=== PATIENT | male | born 1990 | race Caucasian/White ===

== ENCOUNTER 2017-10-19 15:10 | Emergency (ER) | payer OTHER ==
[~2017-10-19] VITALS: Ht 180.3 cm; Wt 93.2 kg
[~2017-10-19 15:10] MED LIST: ADVIL; NOHOMEMEDS; PERCOCET 5/31 TABLET PO
[2017-10-19] MEDS ORDERED: NORCO 7.5/321 TABLET PO (18:05)
[2017-10-19] MEDS ORDERED: MOTRIN800 MG PO (18:05)
[2017-10-19] MEDS ORDERED: LIDODERM 5% P1 PATCH TD (18:05)
[2017-10-19 18:26] VITALS: BP 124/80
== END 2017-10-19 18:27 | disposition home or self-care (01) ==
LOC: EME 15:10
DX: S20.212A Contusion of left front wall of thorax, initial encounter (principal); W00.0XXA Fall on same level due to ice and snow, initial encounter; Y93.K1 Activity, walking an animal; F17.200 Nicotine dependence, unspecified, uncomplicated
CPT/HCPCS: 71101; 99281; 99283

== ENCOUNTER 2018-04-28 11:33 | Emergency (ER) | payer OTHER ==
[~2018-04-28] VITALS: Ht 180.3 cm; Wt 90.8 kg
[~2018-04-28 11:33] MED LIST changes: +LIDODERM 5% P1 PATCH TD; +MOTRIN800 MG PO; +NORCO 7.5/321 TABLET PO
[2018-04-28] MEDS ORDERED: LIDODERM 5% P1 PATCH TD (12:57)
[2018-04-28] MEDS ORDERED: MOTRIN800 MG PO (12:57)
[2018-04-28] MEDS ORDERED: BACLOFEN10 MG PO (12:57)
[2018-04-28 13:06] VITALS: BP 107/68
== END 2018-04-28 13:07 | disposition home or self-care (01) ==
LOC: EME 11:33
DX: R51 Headache (principal); S16.1XXA Strain of muscle, fascia and tendon at neck level, initial encounter; R40.2412 Glasgow coma scale score 13-15, at arrival to emergency department; W10.9XXA Fall (on) (from) unspecified stairs and steps, initial encounter; Y93.K1 Activity, walking an animal; F17.200 Nicotine dependence, unspecified, uncomplicated
CPT/HCPCS: 72040; 99281; 99284